=== PATIENT | female | born 2000 | race Two or more races ===

== ENCOUNTER 2023-10-25 13:52 | Emergency (ER) | payer OTHER ==
[~2023-10-25] VITALS: Ht 160 cm; Wt 65.3 kg
[2023-10-25] MEDS ORDERED: CEFTRIAXONE SODIUM 1,000 MG VIAL IM ONE (15:00)
[2023-10-25 15:37] LABS: HEMATOCRIT 40.2 % (36.0-45.00); HEMOGLOBIN 13.6 g/dL (12.0-15.00); MEAN CELL VOLUME 89.5 fL (80.00-100.00); MEAN CORPUSCULAR HEMOGLOBIN 30.2 pg (27.00-32.0); MEAN CORPUSCULAR HGB CONC 33.7 g/dl (32.0-36.0); PLATELET COUNT 187 K/uL (150-450); RED CELL DISTRIBUTION WIDTH 13.2 % (11.5-14.5); URINE APPEARANCE Cloudy; URINE BILIRRUBIN Negative (NEGATIVE); URINE BLOOD Moderate; URINE COLOR Yellow; URINE GLUCOSE Negative (NEGATIVE); URINE LEUKOCYTE Moderate; URINE NITRATE Positive
[2023-10-25 15:40] LABS: URINE BACTERIA 9739.2 uL (0.0-1933); URINE RBC 353.6 uL (0.0-20.8); URINE WBC 3141.3 uL (0.0-23.2)
[2023-10-25 15:44] LABS: URINE EPITHELIAL CELLS 1.2 uL (0.0-38.8); URINE PROTEIN 100 (NEGATIVE)
[2023-10-25] MEDS ORDERED: BACTRIM DS TAB1 EACH PO (17:49)
== END 2023-10-25 18:46 | disposition home or self-care (01) ==
LOC: ER 13:53
PROVIDERS: Nurse Practitioner Family
DX: N39.0 Urinary tract infection, site not specified (principal); R30.0 Dysuria; N93.8 Other specified abnormal uterine and vaginal bleeding; Z88.6 Allergy status to analgesic agent